=== PATIENT | male | born 1945 | race Caucasian/White ===

== ENCOUNTER 2022-10-08 15:23 | Emergency (ER) | payer OTHER, SELFPAY ==
[2022-10-08 15:26] VITALS: BP 146/79; PULSE 108; RESP 20; TEMP 36.8; O2SAT 95; BMI 30.5
--- NOTE | 2022-10-08 15:35 | XR_ITS ---
WS: [id number] EXAMINATION: XR chest 1V portable [id number] REASON FOR EXAM: dyspnea/cough COMPARISON: None available. ORDER DATE: 10/08/2022 3:35 PM TECHNIQUE: A single, portable frontal chest x-ray was obtained. X-RAY FINDINGS: The lungs are clear. Pleural spaces are clear. No pleural effusions or pneumothorax. Cardiomediastinal silhouette is normal with atherosclerotic aortic change. No evidence for pulmonary edema. Soft tissue and osseous structures are only partially visualized left shoulder replacement and marked degenerative change in the right shoulder No tubes or lines are present. XR/XR chest 1V portable [id number] IMPRESSION: Unremarkable frontal portable chest x-ray.
--- NOTE | 2022-10-08 15:40 | ED_ITS ---
HPI - SOB/Dyspnea General: Chief Complaint: Shortness of Breath/Dyspnea Stated Complaint: SOB Time Seen by Provider: 10/08/22 15:26 Source: patient Mode of arrival: EMS History of Present Illness: HPI Narrative: 69-year-old male presents emergency room complaining of increasing shortness of breath overnight patient is normally on oxygen he has a productive cough of clear sputum he denies any fevers he has noticed decreased exercise tolerance as this has gotten worse overnight and this morning. No vomiting no diarrhea no purulent sputum production MD elicited complaint: shortness of breath and cough Pertinent past history: COPD Onset (ago): hour(s) Timing: constant Severity: moderate Exacerbating factors: exertion Relieving factors: oxygen, rest and bronchodilators Known history of: COPD Associated symptoms: Reports chest congestion and cough; Deny abdominal pain, chest pain, diaphoresis, dizziness, extremity pain, fever(s), hemoptysis, lightheadedness, myalgias, nausea, orthopnea, palpitations, paresthesias, polydipsia, polyuria, rash, sense of impending doom, syncope, vomiting or other Treatment prior to arrival: oxygen Review of Systems Const: Denies: fever(s), chills, fatigue, malaise or diaphoresis ENMT: Denies: throat pain, ear or mastoid pain, nasal discharge or nasal congestion Card: Denies: chest pain, palpitations, lightheadedness, syncope or orthopnea Resp: Reports: dyspnea, non-productive cough, wheezing and chest congestion; Denies: hemoptysis GI: Denies: abdominal pain, nausea or vomiting : Denies: flank pain, dysuria, urinary frequency or urinary urgency Musc: Denies: extremity pain Skin/Breast: Denies: rash or pruritus Neuro: Denies: dizziness Endo: Denies: polyuria or polydipsia PFSH ED 2 PFSH: Family History Denies family history of Diabetes CAD (coronary artery disease) Dementia Chronic kidney disease (CKD) Cancer Stroke Social History Smoking and tobacco status: current every day smoker Alcohol intake: never Substance/Drug Use: never Lives independently: Yes Household members: family Physical Exam Const: COMMON NORMALS: no acute distress GENERAL APPEARANCE: cooperative and comfortable ORIENTATION/CONSCIOUSNESS: Yes awake, Yes oriented to person, Yes oriented to place and Yes oriented to time HENMT: COMMON NORMALS: normocephalic, atraumatic and hearing grossly normal bilaterally HEAD & SCALP: normocephalic and atraumatic Resp: AUSCULTATION: rhonchi and wheezes Cardio: COMMON NORMALS: regular rhythm and No murmurs present (Cardio) RATE: tachycardic RHYTHM: regular rhythm GI: COMMON NORMALS: Soft to palpation and No hepatosplenomegaly present AUSCULTATION: Yes normoactive bowel sounds PALPATION: Yes Soft to palpation, No Tenderness to palpation present (GI), No Guarding due to palpation present (GI) and Yes No hepatosplenomegaly present Extremity: COMMON NORMALS: normal to inspection, capillary refill normal, no clubbing, cyanosis or edema, no calf tenderness and no pedal edema Neuro: SENSORIUM/ORIENTATION: Yes oriented to person, Yes oriented to place and Yes oriented to time Skin: COMMON NORMALS: no rashes or lesions noted GENERAL SKIN EXAM: no ra shes or lesions noted Course Vital Signs: Vital signs: Vital Signs Temperature 98.2 F 10/08/22 15:26 Pulse Rate 82 10/08/22 17:54 Respiratory Rate 16 10/08/22 16:32 Blood Pressure 177/95 10/08/22 17:54 Pulse Oximetry 93 10/08/22 17:54 Oxygen Delivery Me thod Room Air 10/08/22 16:32 MDM - SOB/Dyspnea Medical Decision Making Improved with steroids and nebulizers discharged home steroid taper antibiotics and aggressive use of nebulizers while awake. Return if worsens Medical Records I reviewed the patient's medical records. Lab Data I reviewed the patient's lab results. 10/08/22 15:30 10/08/22 Unknown Labs/Radiology: Radiology Impressions Chest X-Ray 10/08/22 15:35 IMPRESSION: Unremarkable frontal portable chest x-ray. Laboratory Results WBC 11.4 10^3/uL (4.0-10.0) H 10/08/22 15:30 RBC 5.45 10^6/uL (4.1-5.3) H 10/08/22 15:30 Hgb 14.9 g/dL (11.7-16.6) 10/08/22 15:30 Hct 47.5 % (42.0-52.0) 10/08/22 15:30 MCV 87.2 fl (80-94) 10/08/22 15:30 MCH 27.3 pg (28.0-34.0) L 10/08/22 15:30 MCHC 31.4 g/dL (30.0-36.0) 10/08/22 15: RDW 15.0 % (12.1-15.1) 10/08/22 15: Plt Count 289 10^3/cmm (130-400) 10/08/22 15:30 MPV 10.1 fL (7.4-10.4) 10/08/22 15:30 Neut % (Auto) 66.8 % 10/08/22 15:30 Lymph % (Auto) 22.9 % 10/08/22 15:30 [place] % (Auto) 6.8 % 10/08/22 15:30 Eos % (Auto) 2.8 % 10/08/22 15:30 Baso % (Auto) 0.4 % 10/08/22 15:30 Neut # (Auto) 7.61 10^3/uL (1.8-7.7) 10/08/22 15:30 Lymph # (Auto) 2.6 10^3/uL (0.8-4.8) 10/08/22 15:30 [place] # (Auto) 0.8 10^3/uL (0.2-0.9) 10/08/22 15:30 Eos # (Auto) 0.3 10^3/uL (0.0-0.8) 10/08/22 15:30 Baso # (Auto) 0.0 10^3/uL (0.0-0.1) 10/08/22 15:30 Nucleated RBC % (auto) 0 % 10/08/22 15: Nucleated RBCs # 0.0 /100WBC 10/08/22 15:30 Sodium 142 mmol/L (136-145) 10/08/22 Unknown Potassium 4.3 mmol/L (3.5-5.1) 10/08/22 Unknown Chloride 103 mmol/L (98-107) 10/08/22 Unknown Carbon Dioxide 26 mmol/L (22-29) 10/08/22 Unknown Anion Gap 17.3 (5-19) 10/08/22 Unknown BUN 13 mg/dL (8-23) 10/08/22 Unknown Creatinine 1.1 mg/dL (0.7-1.2) 10/08/22 Unknown GFR Calculation Not Reportable 10/08/22 Unknown Glucose 92 mg/dL (65-115) 10/08/22 Unknown Calculated Osmolality 294 mOsm/kg (285-295) 10/08/22 Unknown Calcium 9.6 mg/dL (8.5-10.5) 10/08/22 Unknown Total Bilirubin 0.4 mg/dL (0.15-1.2) 10/08/22 Unknown AST 18 U/L (0-40) 10/08/22 Unknown ALT 16 U/L (0-41) 10/08/22 Unknown Alkaline Phosphatase 140 U/L (40-130) H 10/08/22 Unknown Troponin T Baseline 24 ng/L (0-15) H 10/08/22 Unknown Troponin T 120 Minute 22.66 ng/L (0-15) H 10/08/22 17:43 Delta Troponin T -1.34 ABS# (0-10) L 10/08/22 17:43 Total Protein 6.9 g/dL (6.6-8.7) 10/08/22 Unknown Albumin 4.2 g/dL (3.5-5.2) 10/08/22 Unknown Globulin 2.7 g/dL (1.3-4.6) 10/08/22 Unknown Discharge Plan Discharge Patient Disposition: Home Clinical Impression: Acute exacerbation of chronic obstructive airways disease Condition: Stable Prescriptions: New doxycycline hyclate 100 mg capsule 100 mg PO BID 10 Days Qty: 20 0RF prednisone 20 mg tablet 20 mg PO TID Qty: 15 0RF Rx Instructions: 1 p.o. 3 times daily x3 days, 1 p.o. twice daily x2 days, 1 p.o. daily x2 days ipratropium-albuterol 0.5 mg-3 mg(2.5 mg base)/3 mL solution for nebulization 3 ml inhalation Q4H PRN (Reason: shortness of breath or wheezing) Qty: 90 0RF No Action albuterol sulfate 90 mcg/actuation HFA aerosol inhaler 1 inh inhalation QID aripiprazole 2 mg tablet 2 mg PO DAILY ferrous sulfate 325 mg (65 mg iron) tablet 325 mg PO DAILY finasteride 5 mg tablet 5 mg PO DAILY gabapentin 300 mg capsule 300 mg PO DAILY loratadine 10 mg capsule 10 mg PO DAILY melatonin 3 mg capsule 3 mg PO DAILY metoprolol succinate 100 mg tablet extended release 24 hr 100 mg PO DAILY olodaterol 2.5 mcg/actuation mist 2 inh inhalation DAILY pantoprazole 20 mg tablet,delayed release (DR/EC) 20 mg PO DAILY simvastatin 80 mg tablet 80 mg PO DAILY sucralfate 1 gram tablet 1 g PO BID trazodone 100 mg tablet 100 mg PO DAILY escitalopram oxalate 20 mg tablet 20 mg PO DAILY tamsulosin 0.4 mg capsule 0.4 mg PO DAILY Discharge Orders: Discharge ED (Routine); Ordered 10/08/22 Ordered By: Cameron Richardson Referrals: Arti Baer MD [Primary Care Provider] - Discharge Diet: Usual diet Discharge Activity: Increase activity as tolerated Patient Instructions: Opioid Safety, Pain Management Activity Restrictions/Additional Instructions: You are seen today for an exacerbation of your COPD. Scan of your legs for blood clot was negative. Can be discharged home start oral steroids tomorrow start oral antibiotics tonight 1 pill twice daily for 10 days. Use nebulizer every 4 hours while awake as needed. If you have any worsening or change symptoms return to the emergency room. Coding Level of Care Code ED Irrigating Pump Operator for Naun Sharma
--- NOTE | 2022-10-08 15:54 | USCV_ITS ---
Rayshawn Nino Age: 77 Gender: M : 1945 Exam Date: 10/08/2022 16:10 Ordering Phys: Cameron Richardson DO Technologist: BA Exam Location: [facility] [place]_ Indication: BLE SWELLING HISTORY: Lower extremity swelling. PROCEDURES: Venous duplex imaging was performed in bilateral lower extremities. The following venous structures were evaluated: common femoral vein, profunda vein, proximal portion of the greater saphenous vein, superficial femoral vein, and the popliteal vein. In addition, the posterior tibial and peroneal trunk were evaluated. Serial compression, augmentation maneuvers, and spectral Doppler flow evaluation were performed. FINDINGS: No evidence of DVT seen in any vessel visualized at this time. CONCLUSIONS No evidence of right lower extremity DVT. No evidence of left lower extremity DVT. Jose Manuel Fisher MD (Electronically Signed) Final Date: 08 October 2022 16:35 S
--- NOTE | 2022-10-08 15:55 | ECG_ITS ---
[facility] Test Date: 2022-10-08 Pat Name: Rayshawn Nino Department: Room: Gender: Male Electrocardiographic Technician: : 1945 Requested By: Cameron Cast Order Number: [id number] Tsering MD: Johnson Orellana M.D. Measurements Intervals [place] Rate: 96 P: 67 [place]: 148 QRS: 15 QRSD: 93 T: 65 QT: 368 QTc: 466 Interpretive Statements SINUS RHYTHM WITH OCCASIONAL SUPRAVENTRICULAR PREMATURE COMPLEXES NONSPECIFIC T-WAVE ABNORMALITY No previous ECG available for comparison Electronically Signed On 10-08-2022 17:30:37 CDT by Johnson Orellana M.D. [email or web address]
[2022-10-08] MEDS: methylPREDNISolone sod succ 125 MG in water for injection-sterile 2 ML 24 MG IVP (16:08)
[2022-10-08 16:27] LABS: Basophils % 0.4 %; Eosinophils # 0.3 10^3/uL (0.0-0.8); Eosinophils % 2.8 %; Hematocrit 47.5 % (42.0-52.0); Hemoglobin 14.9 g/dL (11.7-16.6); Lymphocytes # 2.6 10^3/uL (0.8-4.8); Lymphocytes % 22.9 %; Mean Corpuscular HGB Conc 31.4 g/dL (30.0-36.0); Mean Corpuscular Hemoglobin 27.3 pg (28.0-34.0); Mean Corpuscular Volume 87.2 fl (80-94); Mean Platelet Volume 10.1 fL (7.4-10.4); Monocytes # 0.8 10^3/uL (0.2-0.9); Monocytes % 6.8 %; Neutrophils # 7.61 10^3/uL (1.8-7.7); Neutrophils % 66.8 %; Nucleated Red Blood Cells % 0 %; Platelet Count 289 10^3/cmm (130-400); Red Blood Count 5.45 10^6/uL (4.1-5.3); White Blood Count 11.4 10^3/uL (4.0-10.0)
[2022-10-08 16:32] VITALS: PULSE 85; RESP 16; O2SAT 95
[2022-10-08 16:33] LABS: Troponin(5th) Baseline 24 ng/L (0-15)
[2022-10-08] MEDS: ipratropium-albuterol 3 mL Neb INHALATION (16:33)
[2022-10-08 16:34] VITALS: PULSE 82
[2022-10-08 16:40] LABS: Alanine Aminotransferase 16 U/L (0-41); Albumin Level 4.2 g/dL (3.5-5.2); Alkaline Phosphatase 140 U/L (40-130); Anion Gap 17.3 (5-19); Aspartate Amino Transferase 18 U/L (0-40); Blood Urea Nitrogen 13 mg/dL (8-23); Calcium 9.6 mg/dL (8.5-10.5); Carbon Dioxide 26 mmol/L (22-29); Chloride 103 mmol/L (98-107); Globulin 2.7 g/dL (1.3-4.6); Glucose 92 mg/dL (65-115); Osmolality Calculated 294 mOsm/kg (285-295); Potassium 4.3 mmol/L (3.5-5.1); Sodium 142 mmol/L (136-145); Total Bilirubin 0.4 mg/dL (0.15-1.2); Total Protein 6.9 g/dL (6.6-8.7)
[2022-10-08 17:54] VITALS: BP 177/95; PULSE 82; O2SAT 93
[2022-10-08 18:33] LABS: Troponin 5 2HR 22.66 ng/L (0-15)
[2022-10-08 18:35] LABS: Troponin 5 2HR Delta -1.34 ABS# (0-10)
== END 2022-10-08 17:47 | disposition home or self-care (01) ==
PROVIDERS: Emergency Provider Family Medicine; PCP Family Medicine
DX: J44.1 Chronic obstructive pulmonary disease with (acute) exacerbation (principal); F17.210 Nicotine dependence, cigarettes, uncomplicated
CPT/HCPCS: 36415; 71045; 80053; 84484; 85025; 87040; 93005; 93970; 94640; 96374; 99285; J2930

== ENCOUNTER 2022-10-21 12:30 | Emergency (ER) | payer OTHER, SELFPAY ==
[2022-10-21 12:32] VITALS: BP 124/77; PULSE 91; TEMP 37.2; O2SAT 98; BMI 31.8
--- NOTE | 2022-10-21 12:37 | XR_ITS ---
WS: [id number] XR chest 1V portable [id number] REASON FOR EXAM: dyspnea FINDINGS: The chest appears unchanged compared to previous examination of 10/08/2022. Mild/moderate tortuosity and ectasia of the thoracic aorta. Normal heart size. Calcified granulomatous disease in both hemithoraces. No acute pulmonary parenchymal or pleural abnormality. 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 Moderate dege nerative spondylosis in the mid and lower thoracic cervical spine. XR/XR chest 1V portable [id number] IMPRESSION: Stable chest without acute abnormality.
[2022-10-21 12:46] VITALS: BP 124/77; PULSE 93; RESP 20; O2SAT 93
[2022-10-21 12:49] LABS: Basophils # 0.1 10^3/uL (0.0-0.1); Basophils % 0.4 %; Eosinophils # 0.2 10^3/uL (0.0-0.8); Eosinophils % 1.7 %; Hematocrit 44.7 % (42.0-52.0); Hemoglobin 13.7 g/dL (11.7-16.6); Lymphocytes # 2.8 10^3/uL (0.8-4.8); Lymphocytes % 20.9 %; Mean Corpuscular HGB Conc 30.6 g/dL (30.0-36.0); Mean Corpuscular Hemoglobin 27.2 pg (28.0-34.0); Mean Corpuscular Volume 88.7 fl (80-94); Monocytes # 0.9 10^3/uL (0.2-0.9); Monocytes % 6.4 %; Neutrophils # 9.29 10^3/uL (1.8-7.7); Nucleated Red Blood Cells % 0 %; Platelet Count 209 10^3/cmm (130-400); Red Blood Count 5.04 10^6/uL (4.1-5.3); Red Cell Distribution Width 15.3 % (12.1-15.1); White Blood Count 13.3 10^3/uL (4.0-10.0)
[2022-10-21 13:05] VITALS: PULSE 84; RESP 18; O2SAT 97
--- NOTE | 2022-10-21 13:28 | ECG_ITS ---
[facility] Test Date: 2022-10-21 Pat Name: Rayshawn Nino Department: Room: Gender: Male Field Sales Specialist: : 1945 Requested By: Devendra Solomon Order Number: [id number] Tsering MD: Mary Beth Smith M.D. Measurements Intervals [place] Rate: 94 P: 66 TN: 152 QRS: 12 QRSD: 85 T: 93 QT: 367 QTc: 459 Interpretive Statements SINUS RHYTHM NONSPECIFIC ST & T-WAVE ABNORMALITY Compared to ECG 10/08/2022 15:55:25 No significant changes Electronically Signed On 10-21-2022 22:45:33 CDT by Mary Beth Smith M.D. [id number]
[2022-10-21 13:31] LABS: Alanine Aminotransferase 20 U/L (0-41); Albumin Level 3.4 g/dL (3.5-5.2); Alkaline Phosphatase 113 U/L (40-130); Aspartate Amino Transferase 16 U/L (0-40); Blood Urea Nitrogen 18 mg/dL (8-23); Calcium 8.9 mg/dL (8.5-10.5); Carbon Dioxide 30 mmol/L (22-29); Chloride 100 mmol/L (98-107); Globulin 2.7 g/dL (1.3-4.6); Glucose 95 mg/dL (65-115); NT Pro B Type Natriuretic Pept 707 pg/mL (0-450); Osmolality Calculated 290 mOsm/kg (285-295); Sodium 139 mmol/L (136-145); Total Bilirubin 0.5 mg/dL (0.15-1.2); Total Protein 6.1 g/dL (6.6-8.7)
--- NOTE | 2022-10-21 13:41 | W.ED.SOB ---
HPI - SOB/Dyspnea General: Chief Complaint: Shortness of Breath/Dyspnea Stated Complaint: SOB Time Seen by Provider: 10/21/22 12:35 History of Present Illness: HPI Narrative: Patient presents to the ER with complaints of worsening shortness of breath. Patient comes from the clinic where he is just recently diagnosed with COPD. Patient states has been feeling short of breath over the last 6 months. Patient is on 2 L here per nasal cannula keep his saturation in the upper 90s. Patient does not have O2 at home. Patient's been back in the [place] [facility] for about 2 weeks he did spent a long period in the [facility]. Before today patient does not have a history of COPD or CHF. Review of Systems General: Reports: 10 or more systems reviewed and unremarkable except in HPI and below PFSH ED PFSH: Family History Denies family history of Diabetes CAD (coronary artery disease) Dementia Chronic kidney disease (CKD) Cancer Stroke Social History Smoking and tobacco status: current every day smoker Alcohol intake: never Substance/Drug Use: never Lives independently: Yes Household members: family Physical Exam Const: COMMON NORMALS: no acute distress, average body habitus, patient oriented x3, no limitations, healthy appearing, alert and well nourished HENMT: COMMON NORMALS: normocephalic, atraumatic, hearing grossly normal bilaterally, external ears normal, Normal external nose present and moist oral mucous membranes HEAD & SCALP: normocephalic and atraumatic NOSE: Normal external nose present EXTERNAL EAR: Yes external ears normal Neck/C-Spine: COMMON NORMALS: full ROM, no lymphadenopathy, supple, no meningeal signs, no JVD and Thyroid normal THYROID: Thyroid normal Chest: COMMONS NORMALS: normal inspection of the chest and normal palpation of entire chest wall Resp: COMMON NORMALS: normal respiratory effort, No retractions and No use of accessory muscles; negative for clear to auscultation bilaterally (Coarse breath sounds and wheezing throughout.) AUSCULTATION: not clear to auscultation bilaterally (Coarse breath sounds and wheezing throughout.) Cardio: COMMON NORMALS: no JVD, regular rate, regular rhythm, S1 normal heart sound present, S2 normal heart sound present, No gallops present (Cardio), No clicks present (Cardio), No murmurs present (Cardio) and No rub (Cardio) RATE: regular rate RHYTHM: regular rhythm HEART SOUNDS: S1 normal heart sound present and S2 normal heart sound present GI: COMMON NORMALS: Normal to inspection, nondistended, normoactive bowel sounds present, Soft to palpation, non-tender, No hepatosplenomegaly present and no masses PALPATION: Yes Soft to palpation and Yes No hepatosplenomegaly present Neuro: COMMON NORMALS: patient oriented x3 SENSORIUM/ORIENTATION: Yes alert MENINGEAL SIGNS: Yes no meningeal signs Course Vital Signs: Vital signs: Vital Signs Temperature 98.9 F 10/21/22 12:32 Pulse Rate 88 10/21/22 15:38 Respiratory Rate 18 10/21/22 13:05 Blood Pressure 124/75 10/21/22 15:38 Pulse Oximetry 93 10/21/22 15:38 Oxygen Delivery Me thod Nasal Cannula 10/21/22 15:38 Oxygen Flow Rate 2 10/21/22 15:38 MDM - SOB/Dyspnea Medical Decision Making Patient presents to the ER complaining of shortness of breath for quite a while. Patient did a lot better after nebulizer treatment and put on 2 L of oxygen. Patient's blood work and the chest x-ray and EKG come back all essentially benign. Patient be diagnosed with COPD exacerbation. Patient be placed on home O2 at 2 L/min per nasal cannula be given a prescription for prednisone 40 mg a day for 7 days as well as DuoNeb 1 4 times daily as needed. Patient should follow-up with his PCP next week. Differential Diagnosis Likely acute exacerbation of chronic obstructive airways disease; Unlikely congestive heart failure, community acquired pneumonia, asthma with exacerbation or pulmonary embolism Medical Records I reviewed the patient's medical records. Lab Data I reviewed the patient's lab results. 10/21/22 12:25 10/21/22 12:25 Labs/Radiology: Radiology Impressions Chest X-Ray 10/21/22 12:37 IMPRESSION: Stable chest without acute abnormality. Laboratory Results WBC 13.3 10^3/uL (4.0-10.0) H 10/21/22 12:25 RBC 5.04 10^6/uL (4.1-5.3) 10/21/22 12:25 Hgb 13.7 g/dL (11.7-16.6) 10/21/22 12:25 Hct 44.7 % (42.0-52.0) 10/21/22 12:25 MCV 88.7 fl (80-94) 10/21/22 12:25 MCH 27.2 pg (28.0-34.0) L 10/21/22 12:25 MCHC 30.6 g/dL (30.0-36.0) 10/21/22 12:25 RDW 15.3 % (12.1-15.1) H 10/21/22 12:25 Plt Count 209 10^3/cmm (130-400) 10/21/22 12:25 MPV 10.0 fL (7.4-10.4) 10/21/22 12:25 Neut % (Auto) 70.0 % 10/21/22 12:25 Lymph % (Auto) 20.9 % 10/21/22 12:25 [place] % (Auto) 6.4 % 10/21/22 12:25 Eos % (Auto) 1.7 % 10/21/22 12:25 Baso % (Auto) 0.4 % 10/21/22 12:25 Neut # (Auto) 9.29 10^3/uL (1.8-7.7) H 10/21/22 12:25 Lymph # (Auto) 2.8 10^3/uL (0.8-4.8) 10/21/22 12:25 [place] # (Auto) 0.9 10^3/uL (0.2-0.9) 10/21/22 12:25 Eos # (Auto) 0.2 10^3/uL (0.0-0.8) 10/21/22 12:25 Baso # (Auto) 0.1 10^3/uL (0.0-0.1) 10/21/22 12:25 Nucleated RBC % (auto) 0 % 10/21/22 12:25 Nucleated RBCs # 0.0 /100WBC 10/21/22 12:25 Sodium 139 mmol/L (136-145) 10/21/22 12:25 Potassium 4.0 mmol/L (3.5-5.1) 10/21/22 12:25 Chloride 100 mmol/L (98-107) 10/21/22 12:25 Carbon Dioxide 30 mmol/L (22-29) H 10/21/22 12:25 Anion Gap 13.0 (5-19) 10/21/22 12:25 BUN 18 mg/dL (8-23) 10/21/22 12:25 Creatinine 1.2 mg/dL (0.7-1.2) 10/21/22 12:25 GFR Calculation Not Reportable 10/21/22 12:25 Glucose 95 mg/dL (65-115) 10/21/22 12:25 Calculated Osmolality 290 mOsm/kg (285-295) 10/21/22 12:25 Calcium 8.9 mg/dL (8.5-10.5) 10/21/22 12:25 Total Bilirubin 0.5 mg/dL (0.15-1.2) 10/21/22 12:25 AST 16 U/L (0-40) 10/21/22 12:25 ALT 20 U/L (0-41) 10/21/22 12:25 Alkaline Phosphatase 113 U/L (40-130) 10/21/22 12:25 NT-Pro-B Natriuret Pep 707 pg/mL (0-450) H 10/21/22 12:25 Total Protein 6.1 g/dL (6.6-8.7) L 10/21/22 12:25 Albumin 3.4 g/dL (3.5-5.2) L 10/21/22 12:25 Globulin 2.7 g/dL (1.3-4.6) 10/21/22 12:25 EKG Data EKG 1: I personally reviewed and interpreted this EKG as follows: EKG Interpretation Date: 10/21/22 EKG interpretation time: 13:28 Prior EKG tracings: not available for review Interpretation: EKG shows normal sinus rhythm with a ventricular rate 94 beats minute, VA interval 152, QRS duration 85, QTc 418, nonspecific ST-T wave abnormalities. Discharge Plan Discharge Patient Disposition: Home Clinical Impression: Acute exacerbation of chronic obstructive airways disease Condition: Stable Prescriptions: New ipratropium-albuterol 0.5 mg-3 mg(2.5 mg base)/3 mL solution for nebulization 3 ml inhalation Q6H PRN (Reason: shortness of breath) Qty: 180 0RF prednisone 50 mg tablet 50 mg PO DAILY Qty: 7 0RF No Action albuterol sulfate 90 mcg/actuation HFA aerosol inhaler 1 inh inhalation QID aripiprazole 2 mg tablet 2 mg PO DAILY ferrous sulfate 325 mg (65 mg iron) tablet 325 mg PO DAILY finasteride 5 mg tablet 5 mg PO DAILY gabapentin 300 mg capsule 300 mg PO DAILY loratadine 10 mg capsule 10 mg PO DAILY melatonin 3 mg capsule 3 mg PO DAILY metoprolol succinate 100 mg tablet extended release 24 hr 100 mg PO DAILY olodaterol 2.5 mcg/actuation mist 2 inh inhalation DAILY pantoprazole 20 mg tablet,delayed release (DR/EC) 20 mg PO DAILY simvastatin 80 mg tablet 80 mg PO DAILY sucralfate 1 gram tablet 1 g PO BID trazodone 100 mg tablet 100 mg PO DAILY escitalopram oxalate 20 mg tablet 20 mg PO DAILY tamsulosin 0.4 mg capsule 0.4 mg PO DAILY prednisone 20 mg tablet 20 mg PO TID Qty: 15 0RF Rx Instructions: 1 p.o. 3 times daily x3 days, 1 p.o. twice daily x2 days, 1 p.o. daily x2 days ipratropium-albuterol 0.5 mg-3 mg(2.5 mg base)/3 mL solution for nebulization 3 ml inhalation Q4H PRN (Reason: shortness of breath or wheezing) Qty: 90 0RF Discharge Orders: Discharge ED (Routine); Ordered 10/21/22 Ordered By: Devendra Solomon Other Ambulatory Orders: DME: Oxygen (Order) Location: None Selected Ordered By: Devendra Solomon Referrals: Arti Baer MD [Primary Care Provider] - 1 week Patient Instructions: COPD (Chronic Obstructive Pulmonary Disease) (ED) Activity Restrictions/Additional Instructions: Please use your oxygen at all times, please use your nebulizers as needed. Please follow-up with your family practice doctor within the next 1 week. Coding Level of Care Code ED Manipulative Therapy Specialist for Naun Sharma
[2022-10-21] MEDS: methylPREDNISolone sod succ 125 MG in water for injection-sterile 2 ML 24 MG IVP (13:58)
[2022-10-21] MEDS: FUROsemide 10 mg/mL SDV 4mL 40 MG IVP (14:01)
[2022-10-21 14:21] VITALS: BP 105/65; PULSE 92; O2SAT 97
[2022-10-21 14:29] VITALS: O2SAT 87; O2SAT 94; O2SAT 95
[2022-10-21 15:38] VITALS: BP 124/75; PULSE 88; O2SAT 93
== END 2022-10-21 18:48 | disposition home or self-care (01) ==
PROVIDERS: Emergency Provider Emergency Medicine; PCP Family Medicine
DX: J44.1 Chronic obstructive pulmonary disease with (acute) exacerbation (principal); F17.200 Nicotine dependence, unspecified, uncomplicated
CPT/HCPCS: 71045; 80053; 83880; 85025; 93005; 94640; 96374; 96375; 99285; J1940; J2930

== ENCOUNTER 2022-11-01 07:49 | Outpatient (CLI) | payer OTHER, SELFPAY ==
--- NOTE | 2022-11-01 07:56 | USR_ITS ---
PROCEDURE INFORMATION: Exam: US Right Non-Vascular Joint or Other Extremity Structure Exam date and time: 11/01/2022 8:10 AM Age: 77 years old Clinical indication: Other: Calcified density R axilla TECHNIQUE: Imaging protocol: Right US joint or other nonvascular extremity structure or structures. Real-time ultrasound with image documentation. Limited study. Exam focused on the lower extremity in the region of clinical interest. COMPARISON: CR XR chest 1V portable [id number] 10/21/2022 12:56 PM FINDINGS: Soft tissues: No axillary mass, fluid collection, or shadowing to suggest calcification. Lymph nodes: Morphologically normal, normal size lymph nodes are seen in the right axilla. US/US soft tissue/extremity [id number] IMPRESSION: No pathologic findings.
== END 2022-11-01 07:50 | disposition home or self-care (01) ==
LOC: RAD 07:50
PROVIDERS: PCP Family Medicine; Visit Provider Family Medicine
DX: M85.821 Other specified disorders of bone density and structure, right upper arm (principal)
CPT/HCPCS: 76882

== ENCOUNTER → 2022-11-13 09:25 | Outpatient (BNVA) | payer OTHER, SELFPAY | PROVIDERS: PCP Family Medicine; Visit Provider Internal Medicine Cardiovascular Disease | DX: R07.9 Chest pain, unspecified (principal) | CPT/HCPCS: 93005; 99204 ==